=== PATIENT | female | born 1960 | race Caucasian/White ===

== ENCOUNTER → 2019-01-18 09:36 | Outpatient (CLI) | payer OTHER, SELFPAY ==
--- NOTE | 2019-01-18 09:46 | MRI_ITS ---
STUDY: MRI LUMBAR SPINE WITHOUT CONTRAST REASON FOR EXAM: Female, 58 years old. Back pain and radiculopathy TECHNIQUE: Standardized fat and water weighted pulse sequences were obtained in the sagittal and axial planes. COMPARISON: None FINDINGS: T12-L1: Normal endplates. Normal disc height, hydration and morphology. Normal bilateral facet joints. Normal central canal and bilateral lateral recesses. Normal bilateral intervertebral neural foramina. Normal lumbar lordosis. There is an S-shaped scoliosis of the lumbar spine. Normal conus medullaris that terminates at the L1 level. L1 level. L1-2: Normal endplates. There is mild annular disc bulge, mild bilateral facet arthrosis and mild bilateral foraminal narrowing. Normal central canal . L2-3: There is moderate to marked intervertebral disc space narrowing and disc desiccation. There is a mild annular disc bulge most prominent in the right foraminal region, mild to moderate bilateral facet arthrosis and mild central canal narrowing. Marked right foraminal narrowing. L3-4: There is left-sided subluxation L3 on L4. Moderate disc space narrowing and disc desiccation. There is annular disc bulge most prominent in the right paracentral and foraminal regions. Moderate bilateral facet arthrosis. Mild to moderate central canal narrowing. Mild right foraminal narrowing. L4-5: Grade 1 anterolisthesis of L4 on L5 and right-sided subluxation. Moderate disc space narrowing and disc desiccation. Moderate annular disc bulge, ligamentum flavum hypertrophy and marked bilateral facet arthrosis. Moderate central canal narrowing. Moderate to marked left foraminal narrowing L5-S1: Mild disc space narrowing and annular disc bulge. There are Modic changes at the endplates. There is ligamentum flavum hypertrophy and mild bilateral facet arthrosis. Mild bilateral foraminal narrowing. Normal visualized sacral ala. Normal visualized paraspinous soft tissue structures. MRI/Spine Lumbar (Routine) IMPRESSION: Multilevel degenerative disc disease is most prominent L3-L4 and L4-L5 as described above. There is marked right foraminal narrowing at L2-L3. S-shaped scoliosis the lumbar spine. Electronically Signed: Wanda Lazar, at 11:36 EDT Tel , Service support ,
== END ==
PROVIDERS: Referring Provider Anesthesiology Pain Medicine; Visit Provider Anesthesiology Pain Medicine
DX: M51.16 Intervertebral disc disorders with radiculopathy, lumbar region (principal); M48.061 Spinal stenosis, lumbar region without neurogenic claudication
CPT/HCPCS: 72148